=== PATIENT | female | born 1975 | race Caucasian/White ===

== ENCOUNTER 2023-05-03 12:15 | Emergency (ER) | payer BC, SELFPAY ==
--- NOTE | 2023-05-03 12:32 | ED.GENADULT ---
HPI - General Adult General Chief complaint: Ear Stated complaint: lt ear pain Time Seen by Provider: 05/03/23 12:32 Source: patient Mode of arrival: ambulatory Limitations: no limitations History of Present Illness HPI narrative: 47-year-old female patient presents to the [facility] with complaints of left ear pain x5 days. Patient denies any fevers but states she has felt like she has had some body aches and chills. Denies any nausea, vomiting or diarrhea. Patient states she does take Claritin daily Related Data Home Medications Medication Instructions Recorded Confirmed aspirin 81 mg capsule 81 mg PO DAILY 05/03/23 05/03/23 clonazepam 0.5 mg tablet 0.5 mg PO PRN PRN Anxiety 05/03/23 05/03/23 daridorexant 25 mg tablet (Quviviq) 25 mg PO HS 05/03/23 05/03/23 gabapentin 800 mg tablet 800 mg PO TID 05/03/23 05/03/23 lamotrigine 100 mg tablet 100 mg PO BID 05/03/23 05/03/23 metformin 1,000 mg tablet 1,000 mg PO BID 05/03/23 05/03/23 methocarbamol 500 mg tablet 500 mg PO TID PRN Pain 05/03/23 05/03/23 metoprolol succinate 50 mg 50 mg PO DAILY 05/03/23 05/03/23 tablet,extended release 24 hr montelukast 10 mg tablet 10 mg PO DAILY 05/03/23 05/03/23 quetiapine 300 mg tablet 300 mg PO HS 05/03/23 05/03/23 Allergies Allergy/AdvReac Type Severity Reaction Status Date / Time No Known Allergies Allergy Mild Verified 05/03/23 12:38 Review of Systems Review of Systems: CONSTITUTIONAL: Denies fever, chills, or sweats. EYES: Denies visual changes, redness, or discharge. ENT: Denies rhinorrhea, congestion, sore throat, positive left otalgia. CARDIOVASCULAR: Denies chest pain, palpitations, or edema. RESPIRATORY: Denies cough or dyspnea. GASTROINTESTINAL: Denies abdominal pain, nausea, vomiting, or diarrhea. GENITOURINARY: Denies dysuria or hematuria. SKIN: Denies rash or itching. MUSCULOSKELETAL: Denies back pain, joint pain, or myalgia. NEUROLOGIC: Denies headache, numbness, or weakness. PSYCHIATRIC: Denies anxiety or depression. [facility] Past Medical History Medical History (Updated 05/03/23 @ 13:05 by KATARINA Lutz) Depression Comments At the time of my signature I agree with nursing past medical history, surgical, social, and family history. There is no relevant family history pertinent to the presenting complaint. Exam Narrative: GENERAL: Well-appearing, well-nourished, and in no acute distress. HEAD: Normocephalic, atraumatic. EYES: PERRLA and EOMI. ENT: Nares clear, no rhinorrhea or epistaxis. Mucous membranes moist. posterior pharynx with no erythema, tonsillar swelling, exudates or lesions present. The left ear does appear to have some fluid behind air. No foreign bodies or erythema noted to the canal NECK: Supple. No lymphadenopathy CHEST: Clear to auscultation. No respiratory distress. HEART: Regular rate and rhythm. No murmur heard. Normal peripheral pulses. ABDOMEN: Soft, nontender, nondistended, normal active bowel sounds. EXTREMITIES: Normal range of motion. No edema. SKIN: Warm, dry, no rash. NEURO: No focal deficits. Alert and oriented x3. Course Course Level of Care: Express Care Visit Vital Signs Vital signs: Vital Signs Temperature 36.6 C 05/03/23 12:33 Pulse Rate 100 05/03/23 12:33 Respiratory Rate 18 05/03/23 12:33 Blood Pressure 154/93 H 05/03/23 12:33 Pulse Oximetry 97 05/03/23 12:33 Oxygen Delivery Room Air 05/03/23 12:33 Temperature 36.6 C 05/03/23 12:33 Pulse Rate 100 05/03/23 12:33 Respiratory Rate 18 05/03/23 12:33 Blood Pressure 154/93 H 05/03/23 12:33 Pulse Oximetry 97 05/03/23 12:33 Oxygen Delivery Room Air 05/03/23 12:33 Vital signs reviewed The patient has been informed that they may have pre-hypertension or Hypertension based on a BP reading in the department. I recommend that the patient call the primary care provider listed on their discharge instructions or a physician of their choice this week to arra
[2023-05-03 12:33] VITALS: BP 154/93; PULSE 100; RESP 18; TEMP 36.6; O2SAT 97
== END 2023-05-03 13:05 | disposition home or self-care (01) ==
PROVIDERS: Emergency Provider Nurse Practitioner Family
DX: H65.192 Other acute nonsuppurative otitis media, left ear (principal); F32.A Depression, unspecified; Z79.82 Long term (current) use of aspirin
CPT/HCPCS: 99213; G0463

== ENCOUNTER 2023-08-14 13:27 | Emergency (ER) | payer BC, SELFPAY ==
[2023-08-14 13:38] VITALS: BP 107/60; PULSE 119; RESP 18; TEMP 36.2; O2SAT 96
--- NOTE | 2023-08-14 13:55 | ED.URI ---
HPI - URI/Sore Throat General Chief Complaint: Upper Respiratory Infection Stated Complaint: Cough,Sore Throat Source: patient, RN notes reviewed and old records reviewed Mode of arrival: ambulatory Limitations: no limitations History of Present Illness HPI Narrative: 47-year-old female presents to [facility] with complaints of cough, congestion, sore, generalized myalgia, for 1 day. Patient taking down some and Tylenol for symptoms. Patient denies chest pain, dizziness, nausea vomiting, weakness, shortness of breath. MD elicited complaint: cough, sore throat and nasal congestion Onset (ago): day(s) (1) Consistency: constant Severity: moderate Description of mucous: clear Able to tolerate fluids by mouth: Yes Exacerbating factors: nothing Relieving factors: nothing Context: sick contacts Associated symptoms: myalgias and nasal congestion Treatments prior to arrival: acetaminophen Related Data Home Medications Medication Instructions Recorded Confirmed aspirin 81 mg capsule 81 mg PO DAILY 05/03/23 08/14/23 clonazepam 0.5 mg tablet 0.5 mg PO PRN PRN Anxiety 05/03/23 08/14/23 daridorexant 25 mg tablet (Quviviq) 25 mg PO HS 05/03/23 08/14/23 gabapentin 800 mg tablet 800 mg PO TID 05/03/23 08/14/23 lamotrigine 100 mg tablet 100 mg PO BID 05/03/23 08/14/23 metformin 1,000 mg tablet 1,000 mg PO BID 05/03/23 08/14/23 metoprolol succinate 50 mg 50 mg PO DAILY 05/03/23 08/14/23 tablet,extended release 24 hr montelukast 10 mg tablet 10 mg PO DAILY 05/03/23 08/14/23 quetiapine 300 mg tablet 300 mg PO HS 05/03/23 08/14/23 atorvastatin 40 mg tablet 40 mg PO DAILY 08/14/23 08/14/23 lisinopril 10 mg tablet 10 mg PO DAILY 08/14/23 08/14/23 oxycodone 7.5 mg tablet,oral ONLY 7.5 mg PO TID PRN back pain 08/14/23 08/14/23 (not for feeding tubes) tirzepatide 5 mg/0.5 mL 5 mg subcut WEEKLY 08/14/23 08/14/23 subcutaneous pen injector (Mounjaro) Allergies Allergy/AdvReac Type Severity Reaction Status Date / Time No Known Allergies Allergy Mild Verified 08/14/23 13:31 Review of Systems Constitutional: Constitutional: Reports body ache(s) and Reports fatigue Eyes: Eyes: Reports no additional eye complaints ENT: Reports nasal congestion, Reports sinus pressure and Reports sore throat Cardiovascular: Cardiovascular: Reports no additional cardiovascular complaints Respiratory: Respiratory: Reports chest congestion and Reports cough Neurologic: Reports system reviewed and no additional complaints, except as documented PMFSH Past Medical History Medical History Depression Comments At the time of my signature, I reviewed and agree with the nursing past medical, surgical, social, and family history. There is no relevant family history pertinent to the patient complaint. Exam Const: General: cooperative, healthy appearing, no acute distress and well nourished Nutritional Appearance: well nourished Orientation/consciousness: patient oriented x3 Limitations: no limitations HENMT: Head: normal to inspection and normocephalic Ears: external ears normal, TM's normal bilaterally, mastoids normal and Abnormal EAC present Face/Nose/Sinus: normal facial exam Face and sinus: normal facial exam Mouth: Yes Normal oral and palatal mucosa present, Yes oropharynx normal and Yes moist mucous membranes Throat: tonsils normal, uvula midline, posterior oropharynx abnormal erythema and no uvular edema Eyes: General: appearance normal, both eyes and all related structures Sclera: sclerae normal Pupils: Equal, round and reactive pupils present Resp: Effort & Inspection: normal respiratory effort, able to speak in complete sentences, no audible wheezes, no cough, no respiratory distress and no retractions Auscultation: clear to auscultation bilaterally, no crackles, no rales, no rhonchi and no wheezes Cardio: Rate: regular rate Rhythm: regular rhythm Skin: General skin exam: patience
== END 2023-08-14 14:09 | disposition home or self-care (01) ==
PROVIDERS: Emergency Provider Registered Nurse
DX: J06.9 Acute upper respiratory infection, unspecified (principal); Z20.822 Contact with and (suspected) exposure to COVID-19; F32.A Depression, unspecified
CPT/HCPCS: 87081; 87426; 87804; 87880; 99213; C9803; G0463

== ENCOUNTER 2023-10-14 16:06 | Emergency (ER) | payer BC, SELFPAY ==
[2023-10-14 16:14] VITALS: BP 136/82; PULSE 99; RESP 16; TEMP 36.8; O2SAT 97
--- NOTE | 2023-10-14 16:48 | ED.EXTPRO ---
HPI - Extremity Problem General Chief complaint: Extremity Problem,Nontraumatic Stated complaint: Left Toe Swelling and Pain Time Seen by Provider: 10/14/23 16:40 Source: patient, RN notes reviewed and old records reviewed Mode of arrival: ambulatory Limitations: no limitations History of Present Illness HPI Narrative: 48 year old female who presents to express care with complaints of pain,redness and swelling to her left big toe which is warm to touch. Patient reports that symptoms started Thursday evening and have continued with throbbing pain,denies any trauma to her left great toe. Patient reports that she has been eating alot of tuna and blueberies with her diet and thinks she has gout with no previous history.Patient denies any fevers chills or sweats takes oxycodone for back problems. MD Complaint: other (pain redness swelling to left great toe) Onset (ago): day(s) (day 3) Pain Consistency: constant Location: toe (left great toe) Severity scale (1-10): 8 Quality: other (throbbing) Related Data Home Medications Medication Instructions Recorded Confirmed aspirin 81 mg capsule 81 mg PO DAILY 05/03/23 10/14/23 clonazepam 0.5 mg tablet 0.5 mg PO PRN PRN Anxiety 05/03/23 10/14/23 gabapentin 800 mg tablet 800 mg PO TID 05/03/23 10/14/23 lamotrigine 100 mg tablet 100 mg PO BID 05/03/23 10/14/23 metformin 1,000 mg tablet 1,000 mg PO BID 05/03/23 10/14/23 metoprolol succinate 50 mg 50 mg PO DAILY 05/03/23 10/14/23 tablet,extended release 24 hr montelukast 10 mg tablet 10 mg PO DAILY 05/03/23 10/14/23 quetiapine 300 mg tablet 300 mg PO HS 05/03/23 10/14/23 atorvastatin 40 mg tablet 40 mg PO DAILY 08/14/23 10/14/23 lisinopril 10 mg tablet 10 mg PO DAILY 08/14/23 10/14/23 oxycodone 7.5 mg tablet,oral ONLY 7.5 mg PO TID PRN back pain 08/14/23 10/14/23 (not for feeding tubes) tirzepatide 5 mg/0.5 mL 5 mg subcut WEEKLY 08/14/23 10/14/23 subcutaneous pen injector (Mounsaleemro) furosemide 20 mg tablet 20 mg PO DAILY 10/14/23 10/14/23 methocarbamol 500 mg tablet 500 mg PO BID 10/14/23 10/14/23 suvorexant 20 mg tablet (Belsomra) 20 mg PO DAILY 10/14/23 10/14/23 Allergies Allergy/AdvReac Type Severity Reaction Status Date / Time No Known Allergies Allergy Mild Verified 10/14/23 16:14 Review of Systems Review of Systems: CONSTITUTIONAL: Denies fever, chills, or sweats. EYES: Denies visual changes, redness, or discharge. ENT: Denies rhinorrhea, congestion, sore throat, or otalgia. CARDIOVASCULAR: Denies chest pain, palpitations, or edema. RESPIRATORY: Denies cough or dyspnea. GASTROINTESTINAL: Denies abdominal pain, nausea, vomiting, or diarrhea. GENITOURINARY: Denies dysuria or hematuria. SKIN: Denies rash or itching. MUSCULOSKELETAL: Denies back pain,positive for redness swelling throbbing pain left great toe warmth, or myalgia. NEUROLOGIC: Denies headache, numbness, or weakness. PSYCHIATRIC: Denies anxiety or depression. All systems reviewed & are unremarkable except as noted in HPI and below PMFSH Past Medical History Medical History (Updated 10/15/23 @ 09:36 by Ana Ewing NP) Anxiety Back pain Bronchitis COVID-19 Depression Diabetes History of sinus problem Hyperlipidemia Hypertension Pneumonia Psoriatic arthritis Surgical History Surgical History (Updated 10/15/23 @ 09:37 by Ana Ewing NP) Hx of cholecystectomy Social History Social History (Updated 10/15/23 @ 09:38 by Ana Ewing NP) Smoking status: Former smoker Alcohol intake: unknown Substance use: current Substance use type: opiates Other substance usage details: oxycodone chronic back pain Gender identity (if verbalized by the patient): Female Comments At time of signature, agree with nursing past medical, surgical, social and family history. There is no relevant family history pertinent to the presenting complaint Exam Narrative: GENERAL: Well-appearing, well-nourished, and in no acute distress. HEA
== END 2023-10-14 16:57 | disposition home or self-care (01) ==
PROVIDERS: Emergency Provider Registered Nurse
DX: M10.9 Gout, unspecified (principal); Z87.891 Personal history of nicotine dependence; E11.9 Type 2 diabetes mellitus without complications; Z79.84 Long term (current) use of oral hypoglycemic drugs; E78.5 Hyperlipidemia, unspecified; I10 Essential (primary) hypertension; L40.50 Arthropathic psoriasis, unspecified; F41.9 Anxiety disorder, unspecified; F32.A Depression, unspecified; Z79.82 Long term (current) use of aspirin
CPT/HCPCS: 99213; G0463

== ENCOUNTER 2023-10-23 17:47 | Emergency (ER) | payer BC, SELFPAY ==
--- NOTE | 2023-10-23 17:49 | ED.SKABFB ---
HPI - Skin/Abscess/Foreign Bdy General Chief complaint: Skin/Abscess/Foreign Body Stated complaint: Left Toe Blister Time Seen by Provider: 10/23/23 18:00 Source: patient and RN notes reviewed Mode of arrival: ambulatory Limitations: dementia History of Present Illness HPI narrative: 48-year-old female for a blister near the nail bed of the 1st digit of the left foot. She reports she was treated here for gout in that digit 10 days ago. She reports pain improved but now she has a sister that she developed 2 days ago. She denies drainage. MD complaint: other (Redness) Related Data Home Medications Medication Instructions Recorded Confirmed aspirin 81 mg capsule 81 mg PO DAILY 05/03/23 10/23/23 clonazepam 0.5 mg tablet 0.5 mg PO PRN PRN Anxiety 05/03/23 10/23/23 gabapentin 800 mg tablet 800 mg PO TID 05/03/23 10/23/23 lamotrigine 100 mg tablet 100 mg PO BID 05/03/23 10/23/23 metformin 1,000 mg tablet 1,000 mg PO BID 05/03/23 10/23/23 metoprolol succinate 50 mg 50 mg PO DAILY 05/03/23 10/23/23 tablet,extended release 24 hr montelukast 10 mg tablet 10 mg PO DAILY 05/03/23 10/23/23 quetiapine 300 mg tablet 300 mg PO HS 05/03/23 10/23/23 atorvastatin 40 mg tablet 40 mg PO DAILY 08/14/23 10/23/23 lisinopril 10 mg tablet 10 mg PO DAILY 08/14/23 10/23/23 oxycodone 7.5 mg tablet,oral ONLY 7.5 mg PO TID PRN back pain 08/14/23 10/23/23 (not for feeding tubes) tirzepatide 5 mg/0.5 mL 5 mg subcut WEEKLY 08/14/23 10/23/23 subcutaneous pen injector (Jana) furosemide 20 mg tablet 20 mg PO DAILY 10/14/23 10/23/23 methocarbamol 500 mg tablet 500 mg PO BID 10/14/23 10/23/23 suvorexant 20 mg tablet (Belsomra) 20 mg PO DAILY 10/14/23 10/23/23 Allergies Allergy/AdvReac Type Severity Reaction Status Date / Time No Known Allergies Allergy Mild Verified 10/23/23 17:51 Review of Systems Review of Systems: CONSTITUTIONAL: Denies malaise, chills, sweats, or fever. SKIN: Reports redness, swelling, blister at the base the nail bed of the left foot. Denies purulent drainage, vesicles, bullae, numbness, pain beyond proportion MUSCULOSKELETAL: Denies joint pain or myalgia. NEUROLOGIC: Denies headache. All systems reviewed & are unremarkable except as noted in HPI and below PMFSH Past Medical History Medical History (Updated 10/23/23 @ 18:12 by Mary Menon NP) Anxiety Back pain Bronchitis COVID-19 Depression Diabetes History of sinus problem Hyperlipidemia Hypertension Pneumonia Psoriatic arthritis Surgical History Surgical History (Updated 10/15/23 @ 09:37 by Ana Ewing NP) Hx of cholecystectomy Social History Social History (Updated 10/15/23 @ 09:38 by Ana Ewing NP) Smoking status: Former smoker Alcohol intake: unknown Substance use: current Substance use type: opiates Other substance usage details: oxycodone chronic back pain Gender identity (if verbalized by the patient): Female Comments At time of signature, agree with nursing past medical, surgical, social and family history. There is no relevant family history pertinent to the presenting complaint Exam Narrative: GENERAL: Well-appearing, well-nourished, and in no acute distress. HEAD: Normocephalic, atraumatic. EYES: PERRLA, conjunctivae clear ENT: Mucous membranes moist. NECK: Supple. No lymphadenopathy CHEST: Clear to auscultation. No respiratory distress. HEART: Regular rate and rhythm. SKIN: Warm, dry. Erythema sharp margins and fluid filled blister noted beneath the nail bed of the 1st digit of the left foot. No vesicles, bullae, necrosis, ecchymosis, crepitus noted. NEURO: Alert and oriented x3. PSYCH: Normal mood and affect Course Course Emergency Course: Patient is aware of diagnosis, understands and agrees to treatment plan. Anticipatory guidance given. Patient agrees to follow-up as directed and is aware of reasons to seek care at the emergency department. Portions of this record may lee
[2023-10-23 17:55] VITALS: BP 120/74; PULSE 83; RESP 18; TEMP 36.1; O2SAT 100
== END 2023-10-23 18:13 | disposition home or self-care (01) ==
PROVIDERS: Emergency Provider Nurse Practitioner
DX: L03.032 Cellulitis of left toe (principal); B96.89 Other specified bacterial agents as the cause of diseases classified elsewhere; E11.9 Type 2 diabetes mellitus without complications; E78.5 Hyperlipidemia, unspecified; I10 Essential (primary) hypertension; L40.50 Arthropathic psoriasis, unspecified; F41.9 Anxiety disorder, unspecified; Z79.82 Long term (current) use of aspirin; Z87.891 Personal history of nicotine dependence
CPT/HCPCS: 10160; 87070; 87077; 87186; 87205; 99213; G0463

== ENCOUNTER 2023-11-03 17:39 | Emergency (ER) | payer BC, SELFPAY ==
[2023-11-03 18:00] VITALS: BP 137/81; PULSE 88; RESP 18; TEMP 36.6; O2SAT 98
--- NOTE | 2023-11-03 18:12 | ED.GENADULT ---
HPI - General Adult General Chief complaint: Upper Respiratory Infection Stated complaint: Allergies and Eye Irritation Source: patient, RN notes reviewed and old records reviewed Mode of arrival: ambulatory Limitations: no limitations History of Present Illness HPI narrative: 48 year female presents to [facility] with complaints sinus congestion sinus pressure, right eye redness, irritation, watering this started yesterday. Patient states taking [id number] medications with no relief. Related Data Home Medications Medication Instructions Recorded Confirmed aspirin 81 mg capsule 81 mg PO DAILY 05/03/23 11/03/23 clonazepam 0.5 mg tablet 0.5 mg PO PRN PRN Anxiety 05/03/23 11/03/23 gabapentin 800 mg tablet 800 mg PO TID 05/03/23 11/03/23 lamotrigine 100 mg tablet 100 mg PO BID 05/03/23 11/03/23 metformin 1,000 mg tablet 1,000 mg PO BID 05/03/23 11/03/23 metoprolol succinate 50 mg 50 mg PO DAILY 05/03/23 11/03/23 tablet,extended release 24 hr montelukast 10 mg tablet 10 mg PO DAILY 05/03/23 11/03/23 quetiapine 300 mg tablet 300 mg PO HS 05/03/23 11/03/23 atorvastatin 40 mg tablet 40 mg PO DAILY 08/14/23 11/03/23 lisinopril 10 mg tablet 10 mg PO DAILY 08/14/23 11/03/23 oxycodone 7.5 mg tablet,oral ONLY 7.5 mg PO TID PRN back pain 08/14/23 11/03/23 (not for feeding tubes) tirzepatide 5 mg/0.5 mL 5 mg subcut WEEKLY 08/14/23 11/03/23 subcutaneous pen injector (Mounjaro) furosemide 20 mg tablet 20 mg PO DAILY 10/14/23 11/03/23 methocarbamol 500 mg tablet 500 mg PO BID 10/14/23 11/03/23 suvorexant 20 mg tablet (Belsomra) 20 mg PO DAILY 10/14/23 11/03/23 Allergies Allergy/AdvReac Type Severity Reaction Status Date / Time No Known Allergies Allergy Mild Verified 11/03/23 18:12 Review of Systems Constitutional: Constitutional: Reports no additional constitutional complaints, Denies body ache(s), Denies chills, Denies fatigue, Denies fever(s) and Denies headache(s) Eyes: Eyes: Denies blurry vision, Denies exophthalmos, Denies change in vision, Reports eye discharge, Reports irritation and Reports itchy eyes ENT: Reports system reviewed and no additional complaints, except as documented, Denies vertigo, Denies dizziness, Denies ear discharge, Denies otalgia, Denies facial pain, Denies headache(s), Reports nasal congestion, Reports nasal discharge, Denies sinus pain, Reports sinus pressure and Denies sore throat Cardiovascular: Cardiovascular: Reports no additional cardiovascular complaints, Denies chest pain, Denies chest pain at rest, Denies rapid heart rate and Denies dyspnea Respiratory: Respiratory: Reports no additional respiratory complaints, Denies chest congestion, Denies cough, Denies pain on inspiration, Denies pain with cough and Denies dyspnea Gastrointestinal: Gastrointestinal: Denies abdominal pain, Denies diarrhea, Denies nausea and Denies vomiting Integumentary/Breasts: Skin/Breast: Denies rash Neurologic: Reports system reviewed and no additional complaints, except as documented, Denies vertigo, Denies dizziness and Denies headache(s) Endocrine: Endocrine: Denies fatigue PMFSH Past Medical History Medical History Anxiety Back pain Bronchitis COVID-19 Depression Diabetes History of sinus problem Hyperlipidemia Hypertension Pneumonia Psoriatic arthritis Surgical History Surgical History Hx of cholecystectomy Social History Social History Smoking status: Former smoker Alcohol intake: unknown Substance use: current Substance use type: opiates Other substance usage details: oxycodone chronic back pain Gender identity (if verbalized by the patient): Female Comments At the time of my signature, I reviewed and agree with the nursing past medical, surgical, social, and family history. There is no relevant family hi
== END 2023-11-03 18:28 | disposition home or self-care (01) ==
PROVIDERS: Emergency Provider Registered Nurse
DX: B34.9 Viral infection, unspecified (principal); H10.31 Unspecified acute conjunctivitis, right eye; Z20.822 Contact with and (suspected) exposure to COVID-19; Z87.891 Personal history of nicotine dependence; E11.9 Type 2 diabetes mellitus without complications; Z79.84 Long term (current) use of oral hypoglycemic drugs; E78.5 Hyperlipidemia, unspecified; I10 Essential (primary) hypertension; L40.50 Arthropathic psoriasis, unspecified; F41.9 Anxiety disorder, unspecified
CPT/HCPCS: 87426; 87804; 99213; G0463